=== PATIENT | male | born 1950 | race Caucasian/White ===

== ENCOUNTER 2019-11-28 13:06 | Outpatient (CLI) | payer MEDICARE, OTHER | END 2019-11-28 23:59 | disposition home or self-care (01) | LOC: CFH 13:06 | PROVIDERS: ATTEND Internal Medicine Cardiovascular Disease | DX: I08.8 Other rheumatic multiple valve diseases (principal); I10 Essential (primary) hypertension | CPT/HCPCS: 93306 ==

== ENCOUNTER → 2020-08-30 | Outpatient (CLI) | payer MEDICARE | END | disposition home or self-care (01) | LOC: CFH 07:16 | PROVIDERS: ATTEND Internal Medicine Cardiovascular Disease | DX: I25.89 Other forms of chronic ischemic heart disease (principal); I25.10 Atherosclerotic heart disease of native coronary artery without angina pectoris | CPT/HCPCS: 78452; 93017; A9502 ==